=== PATIENT | female | born 1985 | race Caucasian/White ===

== ENCOUNTER 2020-07-31 12:01 | Outpatient (CLI) | payer OTHER, SELFPAY ==
--- NOTE | ~2020-07-31 | XR_ITS ---
EXAMINATION: XR chest 2V DATE: 07/31/2020 12:47 INDICATION: Dyspnea. Chest tightness. TECHNIQUE: Frontal and lateral views of the chest were obtained. COMPARISON: None. FINDINGS: The chest demonstrates clear lungs without pneumonia, pleural effusion, or pneumothorax. Th e heart size is normal. IMPRESSION: 1. No acute cardiopulmonary disease. Reviewed, dictated and finalized at location A.
--- NOTE | 2020-07-31 12:29 | ECG_ITS ---
Measurements Intervals [place] Rate: 91 P: 45 LA: 176 QRS: 40 QRSD: 87 T: 59 QT: 341 QTc: 420 Interpretive Statements SINUS RHYTHM LOW QRS VOLTAGE IN PRECORDIAL LEADS BORDERLINE ECG Electronically Signed On 07-31-2020 12:54:36 CDT by Axel Louis D.O.
== END 2020-07-31 12:02 | disposition home or self-care (01) ==
PROVIDERS: PCP Family Medicine; Visit Provider Nurse Practitioner Family
DX: R07.9 Chest pain, unspecified (principal); R06.00 Dyspnea, unspecified; R94.31 Abnormal electrocardiogram [ECG] [EKG]
CPT/HCPCS: 71046; 93005

== ENCOUNTER 2021-02-27 17:35 | Outpatient (CLI) | payer OTHER, SELFPAY ==
[2021-02-27 21:06] LABS: Creatinine Urine 31.8 mg/dL
[2021-02-27 21:13] LABS: Creatinine 24 Hour Urine 0.9 gm/24 (0.8-1.8); Total Volume 24 Hour Urine 3090 ml
[2021-03-06 03:45] LABS: Creatinine, 24 Hr Urine 0.97 g/24 h (0.50-2.15); Total Protein/Creatinine Ratio 127 mg/g creat (<=114)
== END 2021-02-27 17:36 | disposition home or self-care (01) ==
LOC: ANHLAB 17:37
PROVIDERS: PCP Family Medicine; Visit Provider Obstetrics & Gynecology
DX: Z34.90 Encounter for supervision of normal pregnancy, unspecified, unspecified trimester (principal); Z3A.00 Weeks of gestation of pregnancy not specified
CPT/HCPCS: 36415; 81050; 82570; 84156; 84166

== ENCOUNTER 2021-06-07 15:12 | Observation (INO) | payer OTHER, SELFPAY ==
[2021-06-07] VITALS (8 sets, daily range): BP systolic 115–131; BP diastolic 65–80; PULSE 88–115; RESP 16–20; TEMP 36.9–37.1; O2SAT 97–100; BMI 31.2
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
[2021-06-07 16:30] LABS: Basophils Percent Auto 0.3 % (0.2-1.2); Eosinophils Absolute Auto 0.4 K/mm3 (0-0.3); Eosinophils Percent Auto 3.9 % (0-4.4); Hematocrit 37.9 % (37.0-47.0); Hemoglobin 13.1 g/dL (12.0-15.0); Immature Granulocyte Absolute 0.05 K/mm3 (0.00-0.031); Immature Granulocyte Percent A 0.6 % (0-0.5); Lymphocytes Absolute Auto 1.39 K/mm3 (0.9-3.2); Lymphocytes Percent Auto 15.4 % (18.3-44.2); Mean Corpuscular HGB Conc 34.6 g/dl (32-36); Mean Corpuscular Hemoglobin 33.5 pg (26-34); Mean Corpuscular Volume 96.9 fl (80-100); Mean Platelet Volume 10.4 fl (7.4-10.4); Monocytes Absolute Auto 0.7 K/mm3 (0.1-0.6); Monocytes Percent Auto 7.5 % (2.6-8.5); Neutrophils Absolute Auto 6.6 K/mm3 (1.3-6.7); Neutrophils Percent Auto 72.3 % (45.5-73.1); Platelet Count Result 131 k/mm3 (150-375); Red Blood Count 3.91 M/mm3 (4.2-5.4); Red Cell Distribution Width 13.3 % (11.5-14.5); White Blood Count 9.1 K/mm3 (4.5-10.0)
[2021-06-07 16:37] LABS: Alanine Aminotransferase 26 U/L (4-35); Albumin Level 3.8 g/dL (3.5-5.1); Alkaline Phosphatase 283 U/L (38-126); Anion Gap 10 mmol/L (8-16); Aspartate Amino Transferase 26 U/L (14-36); Bilirubin,Total 0.2 mg/dL (0.2-1.3); Blood Urea Nitrogen 6 mg/dL (7-17); Calcium 8.9 mg/dL (8.4-10.2); Carbon Dioxide 16 mmol/L (22-30); Chloride 109 mmol/L (98-107); Estimated CRCL calculation 173 ml/min; Estimated Glomerular Filt Rate > 60; Glucose 113 mg/dL (65-110); Potassium 3.7 mmol/L (3.4-5.0); Sodium 135 mmol/L (137-145)
[2021-06-07 16:42] LABS: INR 0.9; Prothrombin Time 11.8 Seconds (11.1-14.7)
[2021-06-07 16:43] LABS: Partial Thromboplastin Time 24.8 SECONDS (22.3-36.8)
--- NOTE | 2021-06-07 18:42 | OBADM ---
This patient, Nadya Jones Josue, admitted to the OB room OB Post 117 for observation. Patient/family oriented to hospital policies and general routines including ID bracelet, bed and alarms, visiting hours, pain management, procedures, bathroom and other care routines, personal items, smoking policy, room service/diet, and visiting hours. Patient/Family are encouraged to report perceived risks to care and to ask questions if they do not understand what they are told or what they should do.
[2021-06-07] MEDS: HYDROcodone/acetaminophen (*CRX) 5-325 MG TABLET 1 TAB PO (21:41)
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
== END 2021-06-07 23:06 | disposition home or self-care (01) ==
LOC: ANHED 17:29 → ANHOBPP 18:04
PROVIDERS: Physician Assistant; Admitting Provider Student in an Organized Health Care Education/Training Program; Emergency Provider Emergency Medicine; PCP Family Medicine; Visit Provider Student in an Organized Health Care Education/Training Program
DX: O26.893 Other specified pregnancy related conditions, third trimester (principal); S40.021A Contusion of right upper arm, initial encounter; V49.50XA Passenger injured in collision with unspecified motor vehicles in traffic accident, initial encounter; Z3A.30 30 weeks gestation of pregnancy
CPT/HCPCS: 36415; 73060; 80053; 85025; 85055; 85461; 85610; 85730; 96365; 99285; A9270; G0378; J0131

== ENCOUNTER 2021-07-29 16:41 | Outpatient (CLI) | payer OTHER, BC, SELFPAY ==
[2021-07-29 17:25] LABS: Basophils Percent Auto 0.4 % (0.2-1.2); Eosinophils Absolute Auto 0.2 K/mm3 (0-0.3); Hematocrit 38.1 % (37.0-47.0); Immature Granulocyte Absolute 0.08 K/mm3 (0.00-0.031); Immature Platelet Fraction Pct 7.4 % (0.9-11.2); Lymphocytes Absolute Auto 1.89 K/mm3 (0.9-3.2); Mean Corpuscular HGB Conc 34.1 g/dl (32-36); Mean Corpuscular Hemoglobin 33.4 pg (26-34); Mean Corpuscular Volume 97.9 fl (80-100); Mean Platelet Volume 10.8 fl (7.4-10.4); Monocytes Absolute Auto 0.8 K/mm3 (0.1-0.6); Monocytes Percent Auto 10.2 % (2.6-8.5); Neutrophils Absolute Auto 4.8 K/mm3 (1.3-6.7); Neutrophils Percent Auto 61.4 % (45.5-73.1); Platelet Count Result 121 k/mm3 (150-375); Red Blood Count 3.89 M/mm3 (4.2-5.4); Red Cell Distribution Width 13.2 % (11.5-14.5); White Blood Count 7.9 K/mm3 (4.5-10.0)
[2021-07-29 17:34] LABS: Alanine Aminotransferase 15 U/L (4-35); Albumin Level 3.7 g/dL (3.5-5.1); Alkaline Phosphatase 753 U/L (38-126); Anion Gap 9 mmol/L (8-16); Aspartate Amino Transferase 23 U/L (14-36); Bilirubin,Total 0.2 mg/dL (0.2-1.3); Blood Urea Nitrogen 6 mg/dL (7-17); Calcium 8.8 mg/dL (8.4-10.2); Carbon Dioxide 21 mmol/L (22-30); Chloride 108 mmol/L (98-107); Estimated Glomerular Filt Rate > 60; Glucose 99 mg/dL (65-110); Potassium 4.1 mmol/L (3.4-5.0); Sodium 138 mmol/L (137-145); Uric Acid 3.5 mg/dL (2.5-7.5)
== END 2021-07-29 17:00 | disposition home or self-care (01) ==
LOC: ANHOBOP 16:50 → ANHLDR 16:51
PROVIDERS: PCP Family Medicine; Visit Provider Obstetrics & Gynecology
DX: O13.9 Gestational [pregnancy-induced] hypertension without significant proteinuria, unspecified trimester (principal); Z3A.00 Weeks of gestation of pregnancy not specified
CPT/HCPCS: 36415; 80053; 84550; 85025; 85055; 99199

== ENCOUNTER 2021-08-11 11:10 | Outpatient (CLI) | payer OTHER, BC, SELFPAY ==
[2021-08-11 11:29] LABS: Hematocrit 37.8 % (37.0-47.0); Hemoglobin 13.1 g/dL (12.0-15.0); Immature Platelet Fraction Pct 7.5 % (0.9-11.2); Mean Corpuscular HGB Conc 34.7 g/dl (32-36); Mean Corpuscular Hemoglobin 33.8 pg (26-34); Mean Corpuscular Volume 97.4 fl (80-100); Mean Platelet Volume 10.6 fl (7.4-10.4); Platelet Count Result 127 k/mm3 (150-375); Red Blood Count 3.88 M/mm3 (4.2-5.4); White Blood Count 6.5 K/mm3 (4.5-10.0)
[2021-08-12 09:26] LABS: Rapid Plasma Reagin Non-Reactive (NonReactive)
== END 2021-08-11 11:11 | disposition home or self-care (01) ==
PROVIDERS: PCP Family Medicine; Visit Provider Pediatrics
DX: Z34.93 Encounter for supervision of normal pregnancy, unspecified, third trimester (principal); Z3A.00 Weeks of gestation of pregnancy not specified
CPT/HCPCS: 36415; 85027; 85055; 86592; 86850; 86900; 86901

== ENCOUNTER 2021-08-12 09:46 | Inpatient (IN) | payer OTHER, BC, SELFPAY ==
[2021-08-12] VITALS (56 sets, daily range): BP systolic 79–132; BP diastolic 54–91; PULSE 63–133; RESP 16–20; TEMP 36.2–37.2; O2SAT 96–100; BMI 35.8
--- NOTE | 2021-08-12 09:52 | LDADM ---
This patient, Nadya Josue, was admitted to Labor/Delivery/Recovery 120 on 08/12/21 at 09:46. Plans for labor, pain management and were discussed with patient. Patient/family oriented to hospital policies and general routines including ID bracelet, bed and alarms, visiting hours, pain management, procedures, bathroom and other care routines, personal items, smoking policy, room service/diet and guest tray routines, infant security routines, and visiting hours. Patient/Family are encouraged to report perceived risks to care and to ask questions if they do not understand what they are told or what they should do. See OBIX for further documentation.
[2021-08-12] MEDS: LACTATED RINGERS 1,000 ML 125 ML IV CONT (10:24)
--- NOTE | 2021-08-12 11:07 | P.PNAN_ITS ---
Anes - Initial Pre Proc Eval Procedure: Operation Date: 08/12/21 12:00 Proposed Procedures p Repeat Section With Tubal Ligation - Eladio Zavala MD Date/Time: 08/12/21 11:07 Surgeon: Eladio Zavala MD Pre Op Diagnosis: C/S Patient Data Age: 36 Gender: F Height: 1.65 m Weight: 97.7 kg Last Vital Signs Temp 37.2 C 08/12/21 10:03 Pulse 101 H 08/12/21 10:03 Resp 20 08/12/21 10:03 BP 132/81 08/12/21 10:03 Allergies Allergy/AdvReac Type Severity Reaction Status Date / Time No Known Allergies Allergy Mild Verified 07/30/20 10:49 Home Medications Medication Instructions Recorded Confirmed Type PNV cmb#95-ferrous fumarate-FA 1 tablet PO DAILY 06/07/21 08/12/21 History [] omeprazole 20 mg PO DAILY 08/12/21 08/12/21 History Patient hx anesthesia problems: none Family hx anesthesia problems: none Results Review: All pre-operative results and documents have been reviewed as part of the pre-operative evaluation. [facility] Past Medical History Medical History (Updated 08/12/21 @ 13:44 by Eladio Zavala MD) delivery delivered Cholecystectomy planned Surgical History Surgical History (Updated 08/12/21 @ 12:38 by Eladio Zavala MD) History of tonsillectomy Hx of appendectomy Family History Family History Father Family history of diabetes mellitus in first degree relative Hypertension Grandparent Breast cancer Social History Social History Smoking status: Never smoker Substance use: never Substance use type: does not use Gender identity (if verbalized by the patient): Female Spiritual care concerns: No Anes - Eval Final PreProcedure Day of Procedure 08/12/21 11:07 Patient weight: obese Heart: regular rate and rhythm Lungs: clear to auscultation and normal air movement Airway: Mallampati scale class II Neurological: alert and oriented Last oral intake: >/= 8 hours ASA classification: II Emergent: no Anesthetic plan: proceed Anesthesia type and monitoring: regional spinal Results Review: All pre-operative results and documents have been reviewed as part of the pre-operative evaluation. Informed Consent: The patient's anesthetic plan and its attendant risks and benefits were discussed with the patient/family/POA. Questions were solicited and answers provided to the satisfaction of the patient/family/POA.
[2021-08-12] MEDS: LACTATED RINGERS 1,000 ML 999 ML IV CONT (12:21)
--- NOTE | 2021-08-12 12:36 | PM.IMHP ---
H&P: HPI History of Present Illness Date/Time: 08/12/21 12:36 36 y/o at 39 2/7 weeks here for repeat . Also desires tubal ligation. Chief Complaint: Here for c section. Review of Systems Review of Systems: All systems reviewed & are unremarkable except as noted in HPI and below PMFSH Past Medical History Medical History (Updated 08/12/21 @ 12:38 by Eladio Zavala MD) delivery delivered Cholecystectomy planned Surgical History Surgical History (Updated 08/12/21 @ 12:38 by Eladio Zavala MD) History of tonsillectomy Hx of appendectomy Family History Family History Father Family history of diabetes mellitus in first degree relative Hypertension Grandparent Breast cancer Social History Social History Smoking status: Never smoker Substance use: never Substance use type: does not use Gender identity (if verbalized by the patient): Female Spiritual care concerns: No Meds Home Medications and Allergies Home Medications Medication Instructions Recorded Confirmed Type PNV cmb#95-ferrous fumarate-FA 1 tablet PO DAILY 06/07/21 08/12/21 History [] omeprazole 20 mg PO DAILY 08/12/21 08/12/21 History Allergies Allergy/AdvReac Type Severity Reaction Status Date / Time No Known Allergies Allergy Mild Verified 07/30/20 10:49 Vital Signs Vital Signs - 24 hr 08/12/21 10:03 08/12/21 12:18 08/12/21 12:19 Temperature 37.2 C 36.8 C Pulse Rate 101 H 79 Respiratory Rate 20 18 Blood Pressure 132/81 116/67 Exam Const: Orientation/consciousness: patient oriented x3 Other: Well-developed, well-nourished female in no acute distress. Neck: Thyroid: thyroid normal Lymphatic: no lymphadenopathy noted (in neck, axilla or inguinal nodes) Resp: Effort & Inspection: normal respiratory effort Auscultation: clear to auscultation bilaterally Cardio: Rate: regular rate Rhythm: regular rhythm Heart sounds: S1 normal heart sound present and S2 normal heart sound present GI: Other: ABD: Soft, nontender, nondistended, gravid. NST reactive. No guarding or rebound tenderness. No hepatosplenomegaly. : General: Yes no CVA tenderness Other: Cervix closed, thick Back/Spine/Pelvis: Back: no CVA tenderness Skin: General skin exam: normal color and no rashes or lesions noted Neuro: General: patient oriented x3 Extrem: Other: Extremities: nontender with no edema Psych: Mental Status: mental status grossly normal Affect: normal affect Assessment and Plan Assessment and plan (1) History of delivery: Code(s): Z98.891 - History of uterine scar from previous surgery Status: Acute Assessment and Plan: A: IUP at 39 2/7 weeks with prior desires repeat. Also desires permanent contraception. P: She understands there are temporary methods of contraception available to her. She understands that there are nonsurgical options as well as surgical options. She understands that tubal ligation will render her permanently sterile. She understands that there is a failure rate associated with tubal ligation, as well as an inherent ectopic gestation risk. Furthermore, she understands risks of surgery to include risks of anesthesia, risks of pain, infection, bleeding, blood products, thromboembolic phenomena and damage to adjacent structures such as bowel, bladder, ureters, blood vessels and nerves. She understands all these risks and elects to proceed with repeat low transverse delivery with concurrent bilateral tubal ligation. She has received the ACOG pamphlet on surgical sterilization. (2) Unwanted fertility: Code(s): Z30.09 - Encounter for other general counseling and advice on contraception Status: Acute
--- NOTE | 2021-08-12 12:40 | WPDHPUPDATE1 ---
History and Physical Update Update Date/Time: 08/12/21 12:40 History and Physical has been reviewed, including an updated exam of the patient. There are NO changes in the patient's condition. Risks, benefits, and alternatives have been discussed and questions answered. Patient agrees to proceed with procedure.
[2021-08-12] MEDS: ceFAZolin 2 GM/D5W 50 ML 2 GM/50 ML BAG IVPB (12:44)
[2021-08-12] MEDS: KETOROLAC 30 MG/ML VIAL (*BKC) IV PUSH ×2 (13:30→16:45)
--- NOTE | 2021-08-12 13:40 | P.PCNOB_ITS ---
OB - Delivery Note Procedure Delivery date: 08/12/21 Procedure: Procedures Operation Date: 08/12/21 12:00 <No data on this case meets the specified criteria> Repeat low transverse delivery with concurrent bilateral tubal ligation via modified [place] technique Delivery monitor: external FHT and external uterine Route of delivery: Specimen: Yes (cord blood) Quantitative Blood Loss (ml): 406 Anesthesia type: Spinal Disposition: PACU Complications: None Narrative: The patient was taken to the operating room where she was prepared and draped in the usual sterile fashion in dorsal supine position with a leftward tilt. She received cefazolin preoperatively. Spinal anesthesia was found to be adequate. A Pfannenstiel skin incision was made along the previous scar line and was carried through to the underlying layer of the fascia. The fascia was incised in the midline and the incision was extended laterally. The fascia was dissected free of the underlying rectus muscles. The rectus muscles were in the midline. The peritoneum was identified, tented up and entered sharply. The peritoneal incision was extended superiorly and inferiorly with good visualization of the bladder. The bladder blade was placed. The vesicouterine peritoneum was identified, tented up and entered sharply. The incision was extended laterally and the bladder flap was developed. The bladder blade was replaced. The uterus was then incised sharply in a transverse fashion along the lower uterine segment. The incision was extended laterally. The infant's heels were grasped and the breech delivered to the level of the scapulae. The arms were swept across the chest and delivered. The head was flexed and easily delivered. The nose and mouth were bulb suctioned. After a delay, the cord was clamped and cut. The was handed off the field. Cord blood was collected. The placenta was removed manually and was passed off the field. The uterus was exteriorized and cleared of all clots and debris. The uterine incision was reapproximated using 0 Monocryl in a running, locked fashion. Excellent hemostasis resulted as did excellent reapproximation of the normal anatomy. The left fallopian tube was then identified by following it out to the fimbriated end. It was grasped in the midportion with a [place] clamp and a loop of tube was ligated with a free tie of 0 plain gut. The tubal segment was then transected and the specimen was passed off to be sent to pathology. Hemostasis was excellent. Attention was turned to the right fallopian tube which was similarly identified, ligated and transected. Once again, excellent hemostasis resulted. The uterus was returned the abdomen. The pelvis was irrigated copiously with warmed normal saline. Rigorous hemostasis was assured. The fascial layer was reapproximated using 0 Vicryl in a running fashion. The skin was closed with a running, subcuticular stitch of 4 0 Vicryl. Dermaflex was applied externally. Sponge, lap, needle and instrument counts were correct. The patient was taken to the recovery room in stable condition. The went to the nursery in stable condition. I was present and scrubbed the entire procedure. Baby Date of : 08/12/21 Time of : 13:09 Weeks of gestation at delivery: 39 Infant gender: Male Weight (pounds): 7 Weight (ounces): 5 presentation: breech Placenta delivery description: Manual Removal and Normal Configuration cord vessel description: 3 Vessels and Delayed Cord Clamping score one minute: 8 score five minutes: 9
--- NOTE | 2021-08-12 13:44 | PM.OBDSVD ---
DS: Admitting Diagnosis Discharge Date 08/14/21 Admitting Diagnosis IUP at 39 2/7 weeks Prior Desired sterility Breech presentation DS: Discharge Diagnosis Discharge Diagnosis (1) Unwanted fertility: Code(s): Z30.09 - Encounter for other general counseling and advice on contraception Status: Acute (2) History of delivery: Code(s): Z98.891 - History of uterine scar from previous surgery Status: Acute (3) Breech presentation: Code(s): O32.1XX0 - Maternal care for breech presentation, not applicable or unspecified Status: Acute OB - DS: Summary OB Procedures : None OB Procedures Intrapartum: and Tubal ligation OB Procedures: : None Peripartum Data Procedures: Procedures Operation Date: 08/12/21 12:00 <No data on this case meets the specified criteria> Repeat LTCS with BTL Discharge Plan Discharge Attending physician on discharge: Eladio Zavala Discharging Clinician: Eladio Zavala Patient Disposition: Home, Self-Care Activity: may shower, may drive after 2 weeks and pelvic rest Diet: regular Wound Care Instructions: incision open to air Discharge Instructions: Call or return if temperature above 100.4? F, increased abdominal pain, increased vaginal bleeding or any new problems. Stand Alone Forms: General Discharge Information Follow-up/Referrals: Eladio Zavala MD [Physician] - 4 Weeks Discharge Medications: New hydrocodone-acetaminophen 5-325 mg tablet 1 - 2 tablet PO Q6H PRN (Reason: pain) Qty: 30 RF: 0 ibuprofen 600 mg tablet 600 mg PO Q6H PRN (Reason: cramps) Qty: 30 RF: 0 Continued PNV cmb#95-ferrous fumarate-FA [] 28 mg iron- 800 mcg Tablet 1 tablet PO DAILY RF: 0 omeprazole 20 mg capsule,delayed release(DR/EC) 20 mg PO DAILY RF: 0 Date of admission: 08/12/21 09:46 Primary Care Provider: Jorden Samaniego Admitting Provider: Eladio Zavala Attending physician on admission: Eladio Zavala Condition: Stable
[2021-08-12] MEDS: OXYTOCIN 30 UNITS/NS 500 ML 30 UNITS/500 ML BAG 125 UNITS IV CONT (13:59)
[2021-08-12] MEDS: ONDANSETRON INJ 4 MG/2 ML VIAL IV PUSH (15:05)
[2021-08-12] MEDS: MORPHINE SULFATE (*CRX) 2 MG/ML INJ IV PUSH (15:30)
--- NOTE | 2021-08-12 15:37 | SUR.PHASEI ---
Report called to Lor Goyal RN. Pt going to room 279 for pp care once recovery completed.
--- NOTE | 2021-08-12 15:55 | SUR.PHASEI ---
Recovery completed. Pt take to labor room via stretcher to visit with family through window. Will move up to pp room once done visiting.
--- NOTE | 2021-08-12 16:20 | PC.NURSE ---
Patient transferred to post room #279 via stretcher. Support person present. Oriented to unit, room, information board, rooming in, admission packet and security measures. Patient verbalizes understanding.
[2021-08-12] MEDS: DEXTROSE 5%/0.45% SOD CHL 1,000 ML 125 ML IV CONT (18:52)
[2021-08-12] MEDS: HYDROcodone/acetaminophen (*CRX) 5-325 MG TABLET 1 TAB PO ×2 (18:52→23:27)
[2021-08-12] MEDS: IBUPROFEN 600 MG TABLET PO (23:27)
[2021-08-12] MEDS: SIMETHICONE 80 MG TAB.CHEW PO (23:28)
[2021-08-13 00:10] VITALS: BP 125/77; PULSE 88; RESP 18; TEMP 36.6; O2SAT 98
[2021-08-13 05:04] VITALS: BP 113/65; PULSE 88; RESP 18; TEMP 36.6; O2SAT 99
[2021-08-13 05:55] LABS: Basophils Percent Auto 0.3 % (0.2-1.2); Eosinophils Absolute Auto 0.1 K/mm3 (0-0.3); Eosinophils Percent Auto 2.1 % (0-4.4); Hematocrit 34.9 % (37.0-47.0); Hemoglobin 11.9 g/dL (12.0-15.0); Immature Granulocyte Absolute 0.02 K/mm3 (0.00-0.031); Immature Granulocyte Percent A 0.3 % (0-0.5); Lymphocytes Absolute Auto 0.78 K/mm3 (0.9-3.2); Lymphocytes Percent Auto 11.8 % (18.3-44.2); Mean Corpuscular HGB Conc 34.1 g/dl (32-36); Mean Corpuscular Hemoglobin 33.9 pg (26-34); Mean Corpuscular Volume 99.4 fl (80-100); Monocytes Absolute Auto 0.4 K/mm3 (0.1-0.6); Monocytes Percent Auto 6.5 % (2.6-8.5); Neutrophils Absolute Auto 5.2 K/mm3 (1.3-6.7); Platelet Count Result 94 k/mm3 (150-375); Red Blood Count 3.51 M/mm3 (4.2-5.4); Red Cell Distribution Width 13.2 % (11.5-14.5); White Blood Count 6.6 K/mm3 (4.5-10.0)
[2021-08-13] MEDS: HYDROcodone/acetaminophen (*CRX) 5-325 MG TABLET 1 TAB PO ×5 (06:08→21:00)
[2021-08-13] MEDS: SIMETHICONE 80 MG TAB.CHEW PO ×4 (06:09→21:01)
[2021-08-13] MEDS: IBUPROFEN 600 MG TABLET PO ×3 (06:09→21:00)
--- NOTE | 2021-08-13 07:27 | WPDANLDNPN2 ---
Anes-Prog Note L&D-Neuraxial Date/Time: 08/13/21 07:27 Neuraxial medications: intrathecal PF morphine Opiod-related complaints: none Patient feedback: Patient satisfied with post-operative pain management.
--- NOTE | 2021-08-13 07:27 | WPDANLDPN2 ---
Anes-Prog Note L&D Date/Time: 08/13/21 07:27 Comfortable throughout: section Neuraxial method: spinal Epidural/Spinal procedure site: clean & non-tender Neuro status: Neuro function grossly intact. Cardiovascular status: normal Respiratory status: normal Airway patency: baseline Mental status: baseline Post-Op hydration status: normal Vital Signs: Last Vital Signs Temp 36.6 C 08/13/21 05:04 Pulse 88 08/13/21 05:04 Resp 18 08/13/21 05:04 BP 113/65 08/13/21 05:04 Pulse Ox 99 08/13/21 05:04 Pain score (VAS): 2 I/O: Intake & Output 08/12/21 08/12/21 08/13/21 15:59 23:59 07:59 Intake Total 2050 400 700 Output Total 340 2700 Balance 1710 400 -2000 Post-procedural complaints: none Patient feedback: Patient satisfied with anesthetic care.
[2021-08-13 07:50] VITALS: BP 98/63; PULSE 92; RESP 16; TEMP 37.3; O2SAT 97
[2021-08-13 08:00] VITALS: PULSE 88; RESP 18; O2SAT 99
[2021-08-13] MEDS: DOCUSATE SODIUM 100 MG CAPSULE PO ×2 (09:48→17:10)
[2021-08-13 12:30] VITALS: BP 112/74; PULSE 90; RESP 16; TEMP 37.1; O2SAT 98
--- NOTE | 2021-08-13 16:30 | PM.OBPNVD ---
OB - PN: Subj Subjective Date/time seen: 08/13/21 16:30 Narrative: Pain OK. Tolerating diet. Would like circumcision for son. OB - PN: Obj Data Labs CBC & Chem 7: 08/13/21 04:30 Labs: Laboratory Results - last 24 hr 08/13/21 04:30 WBC 6.6 RBC 3.51 L Hgb 11.9 L Hct 34.9 L MCV 99.4 MCH 33.9 MCHC 34.1 RDW 13.2 Plt Count 94 L MPV 11.0 H Immature Gran % (Auto) 0.3 Neut % (Auto) 79.0 H Lymph % (Auto) 11.8 L [place] % (Auto) 6.5 Eos % (Auto) 2.1 Baso % (Auto) 0.3 Lymph # (Auto) 0.78 L [place] # (Auto) 0.4 Eos # (Auto) 0.1 Baso # (Auto) 0.0 Abs Immat Gran (auto) 0.02 Absolute Neuts (auto) 5.2 Absolute Nucleated RBC 0.0 Nucleated RBC % 0.0 OB - PN A/P Plan Comments: A: POD#1, doing well. P: Reviewed circ. Routine care. Exam Narrative: AVSS I/O OK ABD soft, nontender, fundus firm. Incision c/d/i. EXT nontender
[2021-08-13 19:36] VITALS: BP 128/74; PULSE 80; RESP 18; TEMP 36.9; O2SAT 100
[2021-08-14] MEDS: IBUPROFEN 600 MG TABLET PO (03:56)
[2021-08-14] MEDS: HYDROcodone/acetaminophen (*CRX) 5-325 MG TABLET 1 TAB PO ×2 (03:56→09:13)
[2021-08-14 07:40] VITALS: BP 106/74; PULSE 94; RESP 16; TEMP 37.2; O2SAT 97
--- NOTE | 2021-08-14 09:04 | PM.OBPNVD ---
OB - PN: Subj Subjective Date/time seen: 08/14/21 09:04 Narrative: Pain OK. Tolerating diet. Would like to go home. OB - PN: Obj Data Labs CBC & Chem 7: 08/13/21 04:30 OB - PN A/P Plan Comments: A: POD#2, doing well. P: Home to f/u 4 weeks. Exam Narrative: AVSS ABD soft, nontender, fundus firm. Incision c/d/i. EXT nontender
[2021-08-14] MEDS: DOCUSATE SODIUM 100 MG CAPSULE PO (09:10)
[2021-08-14] MEDS: MULTIVIT/MIN/PREN/FOL AC/IRON TABLET 1 TAB PO (09:10)
[2021-08-15 09:45] VITALS: BP 117/72; PULSE 77; RESP 20; TEMP 36.9; O2SAT 98
== END 2021-08-14 12:10 | disposition home or self-care (01) | DRG 785 ==
LOC: ANHLDR 13:45 → ANHOB2 16:30
PROVIDERS: Admitting Provider Obstetrics & Gynecology; PCP Family Medicine; Visit Provider Obstetrics & Gynecology
PROC: 10D00Z1 Extraction of Products of Conception, Low, Open Approach (ICD-10-PCS; CPT 59514; principal; 2021-08-12 12:00)
DX: O34.219 Maternal care for unspecified type scar from previous cesarean delivery (principal); Z30.2 Encounter for sterilization; O32.1XX0 Maternal care for breech presentation, not applicable or unspecified; Z3A.39 39 weeks gestation of pregnancy; Z37.0 Single live birth
CPT/HCPCS: 36415; 85025; 88302; A9270; J0690; J1885; J2270; J2274; J2405; J2590; J7120

== ENCOUNTER 2022-05-04 14:25 | Emergency (ER) | payer OTHER, SELFPAY ==
[2022-05-04 14:33] VITALS: BP 133/79; PULSE 86; RESP 16; TEMP 36.4; O2SAT 100
--- NOTE | 2022-05-04 14:36 | ED.EAR ---
HPI - Ear Problem General Chief complaint: Ear Stated complaint: Ear Pain Time Seen by Provider: 05/04/22 14:36 Source: patient Mode of arrival: ambulatory Limitations: no limitations History of Present Illness HPI Narrative: 37 y/o female presented for c/o bilateral ear pain for over one week. States the left is worse than the right. Endorses ringing and dizziness today. Taking OTC meds without relief. Denies sinus pressure/congestion, sore throat, fever/chills. Has been swimming. Complaint: ear pain Related Data Allergies Allergy/AdvReac Type Severity Reaction Status Date / Time No Known Allergies Allergy Mild Verified 05/04/22 14:27 Review of Systems Review of Systems: CONSTITUTIONAL: Denies malaise, chills, or fever. EYES: Denies visual changes, redness, or discharge. ENT: Denies rhinorrhea, congestion, sinus pain, and sore throat. Reports ear pain CARDIOVASCULAR: Denies chest pain, palpitations, or edema. RESPIRATORY: Denies cough or dyspnea. GASTROINTESTINAL: Denies abdominal pain, nausea, vomiting, diarrhea SKIN: Denies rash or itching. MUSCULOSKELETAL: Denies myalgia. NEUROLOGIC: Denies headache. All systems reviewed & are unremarkable except as noted in HPI and below PMFSH Past Medical History Medical History (Updated 05/04/22 @ 14:49 by Laurence Rodriguez APRN) delivery delivered Cholecystectomy planned Surgical History Surgical History History of tonsillectomy Hx of appendectomy Family History Family History Father Family history of diabetes mellitus in first degree relative Hypertension Grandparent Breast cancer Social History Social History Smoking status: Never smoker Substance use: never Substance use type: does not use Gender identity (if verbalized by the patient): Female Spiritual care concerns: No Comments At time of signature, agree with nursing past medical, surgical, social and family history. There is no relevant family history pertinent to the presenting complaint Exam Narrative: GENERAL: Well-appearing EYES: conjunctivae clear ENT: Nares clear. Mucous membranes moist. Left canal and TM erythematous, bulging TM with dull reflex; Right TM pearly reyes with normal light reflex; no tragal tenderness bilaterally. Oropharynx not erythematous without lesions. CHEST: Clear to auscultation, breath sounds equal. HEART: Regular rate and rhythm. SKIN: Warm, dry, no rash. NEURO: Alert and oriented x3. PSYCH: Normal mood and affect Course Course Emergency Course: Patient is aware of diagnosis, understands and agrees to treatment plan. Anticipatory guidance given. Patient agrees to follow-up as directed and is aware of reasons to seek care at the emergency department. Portions of this record may have been created with voice recognition software Level of Care: Express Care Visit Vital Signs Vital signs: Vital Signs Temperature 97.6 F 05/04/22 14:33 Pulse Rate 86 05/04/22 14:33 Respiratory Rate 16 05/04/22 14:33 Blood Pressure 133/79 05/04/22 14:33 Pulse Oximetry 100 05/04/22 14:33 Oxygen Delivery Room Air 05/04/22 14:33 Temperature 97.6 F 05/04/22 14:33 Pulse Rate 86 05/04/22 14:33 Respiratory Rate 16 05/04/22 14:33 Blood Pressure 133/79 05/04/22 14:33 Pulse Oximetry 100 05/04/22 14:33 Oxygen Delivery Room Air 05/04/22 14:33 Reviewed Medical Decision Making MDM Narrative Medical decision making narrative: Advised supportive treatments and s/s to go to the ER. patient is non-toxic appearing and is in no distress. Patient is appropriate for outpatient treatment and follow-up. Differential Diagnosis Differential Diagnosis: Coronavirus, strep pharyngitis, allergic rhinitis, upper respiratory tract infection, sinusitis, rhinosinusitis, nasop
== END 2022-05-04 14:48 | disposition home or self-care (01) ==
PROVIDERS: Emergency Provider Nurse Practitioner Family; PCP Family Medicine
DX: H66.92 Otitis media, unspecified, left ear (principal)
CPT/HCPCS: 99213; G0463

== ENCOUNTER 2023-03-09 10:46 | Emergency (ER) | payer OTHER, SELFPAY ==
--- NOTE | ~2023-03-09 | XR_ITS ---
EXAMINATION: XR foot LT min 3V DATE: 03/09/2023 11:11 INDICATION: Left foot pain. Injury. TECHNIQUE: 4 views of left foot were obtained. COMPARISON: None. FINDINGS: Bone alignment is normal. No fracture. There is mild osteoarthritis of first metatarsophala ngeal joint and talonavicular joint. IMPRESSION: 1. Mild polyarticular osteoarthritis. Reviewed, dictated and finalized at location A.
--- NOTE | ~2023-03-09 | XR_ITS ---
EXAMINATION: XR ankle LT min 3V DATE: 03/09/2023 11:11 INDICATION: Left ankle pain. Injury. TECHNIQUE: 4 views of left ankle were obtained. COMPARISON: None. FINDINGS: Bone alignment is normal. No fracture. There is mild osteoarthritis of talonavicular joint. There is ankle soft tissue swelling. IMPRESSION: 1. No fracture. Reviewed, dictated and finalized at location A. IMPRESSION: 1. No fracture.
--- NOTE | 2023-03-09 10:51 | ED.LOWEXIN ---
HPI - Extremity Injury (Lower) General Chief Complaint: Extremity Injury, Lower Stated Complaint: Pain left foot Time Seen by Provider: 03/09/23 11:05 Source: patient, RN notes reviewed and old records reviewed Mode of arrival: ambulatory Limitations: no limitations History of Present Illness HPI Narrative: 38-year-old female presents to the [facility] with complaints of left ankle and foot pain. Patient states that she was walking downstairs, missed the last step and rolled her ankle. Occurred last night. Does have full range of motion. Walks with a slight limp favoring that right side. Has been icing it. Works as a mailroom personnel Onset (ago): hour(s) (12) Related Data Allergies Allergy/AdvReac Type Severity Reaction Status Date / Time No Known Allergies Allergy Mild Verified 05/04/22 14:27 Review of Systems Review of Systems: All systems reviewed & are unremarkable except as noted in HPI and below Constitutional: Constitutional: Reports no additional constitutional complaints Eyes: Eyes: Reports no additional eye complaints ENT: Reports system reviewed and no additional complaints, except as documented Cardiovascular: Cardiovascular: Reports no additional cardiovascular complaints, Denies chest pain and Denies dyspnea Respiratory: Respiratory: Reports no additional respiratory complaints, Denies chest congestion, Denies cough and Denies dyspnea Gastrointestinal: Gastrointestinal: Reports no additional gastrointestinal complaints, Denies abdominal pain, Denies nausea and Denies vomiting Musculoskeletal: Musculoskeletal: Reports as per HPI, Reports arthralgias, Reports joint swelling and Denies numbness Integumentary/Breasts: Skin/Breast: Reports system reviewed and no additional complaints, except as docu Neurologic: Reports system reviewed and no additional complaints, except as documented Psychiatric: Psychiatric: Reports no additional psychiatric complaints Allergic/Immunologic: Allergic/Immunologic: Reports no additional allergic/immunologic complaints [facility] Past Medical History Medical History (Updated 03/09/23 @ 11:29 by Obdulia Au APRN) delivery delivered Cholecystectomy planned Surgical History Surgical History History of tonsillectomy Hx of appendectomy Family History Family History Father Family history of diabetes mellitus in first degree relative Hypertension Grandparent Breast cancer Social History Social History (Reviewed 03/09/23 @ 11:24 by NIGEL Will Smoking status: Never smoker Substance use: never Substance use type: does not use Living arrangements: with family Occupation/Education: occupation Gender identity (if verbalized by the patient): Female Spiritual care concerns: No Comments At the time of my signature, I reviewed and agree with the nursing past medical, surgical, social, and family history. There is no relevant family history pertinent to the patient complaint. Exam Const: General: cooperative, healthy appearing, comfortable, no acute distress, well developed, alert and well nourished Nutritional Appearance: well nourished Orientation/consciousness: patient oriented x3 Limitations: no limitations HENMT: Head: normal to inspection Ears: hearing grossly normal bilaterally and external ears normal Face/Nose/Sinus: Normal external nose present, Normal nares present, Normal nasal mucous membranes and turbinates present and normal facial exam Face and sinus: normal facial exam Mouth: Yes lip normal Eyes: General: appearance normal, both eyes and all related structures Alignment and Position: alignment normal Periorbital: periorbital findings normal Pupils: Equal, round and reactive pupils present EOM: EOMs intact bilaterally Neck: Neck: normal visual inspection, full ROM, no lymphadenopathy and no meningeal si
[2023-03-09 10:54] VITALS: BP 130/92; PULSE 93; RESP 18; TEMP 37; O2SAT 100
== END 2023-03-09 11:33 | disposition home or self-care (01) ==
PROVIDERS: Emergency Provider Nurse Practitioner
DX: S90.02XA Contusion of left ankle, initial encounter (principal); S90.32XA Contusion of left foot, initial encounter; S93.402A Sprain of unspecified ligament of left ankle, initial encounter; X50.9XXA Other and unspecified overexertion or strenuous movements or postures, initial encounter
CPT/HCPCS: 73610; 73630; 99213; G0463